=== PATIENT | male | born 1930 | race Caucasian/White ===

== ENCOUNTER → 2017-12-22 | Day surgery (SDC) | payer MEDICARE, OTHER ==
[~2017-12-22] VITALS: Ht 177.8 cm; Wt 80.4 kg
[~2017-12-22] MED LIST: ACETAMINOPHEN/HYDROcodone 325 MG/5 MG TAB PO PRN; BETAMETHASONE SOD PHOS/ACETATE SUSP 30 MG/5 ML VIAL ONE; BUPIVACAINE/EPINEPHRINE 0.5% PF 10 ML VIAL ONE; CHLORHEXIDINE GLUCONATE 2 % 1 PACK (2 CLOTHS) TOPICAL PRN; CHLORHEXIDINE GLUCONATE 4% SOLN 120 ML BTL TOPICAL SCH; CO Q50CA PO; D 50CAP2 PO; DEXAMETHASONE SOD PHOS 4 MG/ML VIAL IV ONE; DO NOT ADM ANY ANTICOAGULANT DRUGS PRN; FOLI1TAB6 PO; GELATIN 12 MM/7 MM FOAM ONE; GENTAMICIN SULFATE 80 MG/2 ML VIAL ONE; GLYCOPYRROLATE 1 MG/5 ML SYRINGE IV PUSH ONE; LACTATED RINGER'S 1000 ML IV PRN; LACTCAP8 PO; LIDOCAINE HCL 1% PF 5 ML SYRINGE OTHER ONE; METOPROLOL TARTRATE 25 MG TAB PO PRN; MIDAZOLAM HCL 2 MG/2 ML VIAL ONE; MORPHINE SULFATE 4 MG/ML INJ ONE; MULT-65 PO; NEOSTIGMINE 5 MG/5 ML SYRINGE IV PUSH ONE; NIAC500T4 PO; NORC5TAB PO; OMEGCAP PO; ONDANSETRON HCL 4 MG/2 ML VIAL IV ONE; ONDANSETRON ODT 4 MG TAB PO PRN; POVIDONE IODINE 5% (ANTISEPSIS KIT) 4 APPLICATIONS EACH NARE PRN; PROPOFOL 200 MG/20 ML AMP IV ONE; ROCURONIUM INJ 50 MG/5 ML SYRINGE IV PUSH ONE; SODIUM CHLORID 0.9% 500 ML IV PRN; TURM500C3 PO; ceFAZolin 2 GM PREMIX 50 ML IV SCH; ePHEDrine/NS 25 MG/5 ML SYRINGE IV ONE
[2017-12-22 09:10] LABS: BICARBONATE 27.6 MEQ/L (21.0-32.0); CALCIUM 8.5 MG/DL (8.5-10.1); CREATININE 0.74 MG/DL (0.60-1.30)
--- NOTE | 2017-12-22 12:23 | PD.OP ---
cc: Napoleon Jeong. Operative Report Date of Surgery: December 22, 2017 Preoperative Diagnosis: Lumbar spinal stenosis L3-4 moderate and L4-5 severe. Spondylolisthesis L4-5, minimal to grade 1. Bilateral, right greater than left lumbosacral radiculopathy Postoperative Diagnosis: Same Procedure: Bilateral lumbar laminectomy L3-4 and L4-5 from the left with bilateral lateral recess decompression. Use of dilation port and microscope Anesthesia: General Surgeon: Napoleon Jeong Security Controls Assessor(s): HERBIE Javed Operation and Findings: EBL: 150 cc INDICATION: This patient is an 87-year-old male with severe spinal stenosis at L4-5 and moderate to severe at L3-4. He manifests with a bilateral lumbosacral radiculopathy. He presents now for surgical treatment. NOTE: Elizabeth Javed PA-C was present for the entire surgical procedure as my home health assistant. In my medical opinion her skill and care was necessary for the proper management of this patient. PROCEDURE: The patient was brought to the operating room and anesthetized in the supine position. The patient was rolled to a prone position on a Jorge Luis frame on a Clay table. All pressure points were protected in the back was scrubbed with alcohol followed by Hibiclens followed by ChloraPrep and draped sterilely. A timeout was done and antibiotics were given. AP and lateral radiographic images were used to identify the proper levels and perform skin markings. We started from the left side at the L3-4 level. A paramedian incision was made and an off-midline fascial incision was made. A dilating system was placed down to the interlaminar space and held provisionally to the side of the table. The microscope was brought into the field. A high-speed bur under the microscope was used to perform a bilateral laminectomy from that side. A lateral recess decompression bilaterally was accomplished using straight and angled Kerrison punches. A partial medial facetectomy was accomplished. The crossing and exiting nerve roots were completely decompressed. We moved to the L4-5 level. A separate fascial incision was made. A dilating system was placed down to the interlaminar space and held provisionally to the side of the table. The microscope was brought back into the field. A high- speed bur under the microscope was used to perform a bilateral laminectomy from that side. A lateral recess decompression bilaterally was accomplished using straight and angled Kerrison punches. A partial medial facetectomy was accomplished. The crossing and exiting nerve roots were completely decompressed. The wound was irrigated copiously. A small piece of Gelfoam with Celestone was placed into the epidural space. Hemostasis was controlled. The deep fascia was approximated with interrupted 0 Vicryl suture subcutaneous suture with 2-0 Vicryl suture and skin with running intradermal 3-0 Vicryl followed by Dermabond. A field block with local anesthesia was utilized. A sterile dressing was applied. The sponge count and needle counts and instrument counts were all correct. The patient tolerated the procedure well as taken to the recovery room in satisfactory condition. FINDINGS: There was a high-grade lateral recess stenosis bilaterally at both levels. There was no complication that was appreciated. There was no leak of cerebrospinal fluid. The decompression was felt to be very satisfactory. Napoleon Jeong MD December 22, 2017 12:23
[2017-12-22 14:18] VITALS: BP 104/67; PULSE 54; RESP 20; TEMP 97.4; O2SAT 100
--- NOTE | 2017-12-22 15:05 | RADRPT ---
EXAM DATE: 12/22/2017 2:34 PM EDT AGE/SEX: 87 years / Male INDICATIONS: L3-L5 Laminectomy. CLINICAL DATA: This is the patient's initial encounter. Patient reports that signs and symptoms have been present for 1 day and indicates a pain score of Nonresponsive. MEDICAL/SURGICAL HISTORY: Non-responsive. Non-responsive. COMPARISON: No prior [facility] exams available for comparison. FINDINGS: Single crosstable lateral view of the lumbar spine. Assuming 5 lumbar type vertebral bodies the radio paque marker is positioned at L3-4 level. Redemonstration of grade 1 anterolisthesis of L4 on L5. Radha tebral body heights are intact. CONCLUSION: 1. Radiopaque marker is positioned at the L3-4 level, as above. Electronically signed by: Luiz Franco MD 12/22/2017 3:03 PM EDT
== END | disposition home or self-care (01) ==
LOC: HSDC 06:32
PROVIDERS: ATTEND Orthopaedic Surgery Orthopaedic Surgery of the Spine
DX: M48.062 Spinal stenosis, lumbar region with neurogenic claudication (principal); M25.551 Pain in right hip; M54.5 Low back pain; M54.16 Radiculopathy, lumbar region; M43.10 Spondylolisthesis, site unspecified; M51.35 Other intervertebral disc degeneration, thoracolumbar region
CPT/HCPCS: 00630; 63047; 63048; 72020; 80048; 86900; 86901; J0702; J1100; J1580; J2250; J2270; J2405; J2710; J3010; J7120; 76000